=== PATIENT | male | born 1945 | race Caucasian/White ===

== ENCOUNTER → 2018-03-23 | Outpatient (CLI) | payer MEDICARE, BC | END | disposition home or self-care (01) | LOC: RADUSWWP 11:44 | PROVIDERS: ATTEND Family Medicine | DX: R25.2 Cramp and spasm (principal) | CPT/HCPCS: 93922 ==

== ENCOUNTER → 2020-03-29 | Outpatient (CLI) | payer MEDICARE ==
[~2020-03-29] MED LIST: DOBUTamine DRIP for NUC MED 500 MG in DEXTROSE/WATER 1 250ML.BAG IV ONE
--- NOTE | 2020-03-29 13:52 | ECHOS ---
STRESS ECHOCARDIOGRAM LUMASON: N/A Vial INDICATIONS: Chest pain MEDICATIONS: BASELINE HEART RATE: 67 BASELINE BLOOD PRESSURE: 102/64 MAXIMUM HEART RATE: 123 MAXIMUM BLOOD PRESSURE: 139/54 85% MPHR: 123 100% MPHR: 145 METS: N/A MAXIMUM STAGE REACHED: 3 TOTAL EXERCISE TIME: 8:54 CLINICAL INFORMATION: Baseline rhythm is a sinus mechanism, rate of 67, normal axis and intervals, occasional PVCs. Baseline blood pressure 102/64 mmHg. Patient received the infusion of dobutamine per protocol, peak rate 123 beats per minute which is equal to 85% maximum predicted heart rate. Peak blood pressure 139/54 mmHg. Electrocardiograph monitoring revealed occasional single PVCs with rare couplets and triplets during the infusion, PACs were noted as well. There was no evidence of diagnostic ischemic ST deviation. FINDINGS: Baseline echocardiogram revealed normal wall motion. At peak infusion, there was normal wall motion augmentation with no hypokinesis or dyskinesis. CONCLUSION: 1. Normal electrocardiographic response to dobutamine infusion with occasional PVCs and rare couplets and triplets. 2. Normal stress echocardiogram with no evidence of stress-induced ischemia. MMODL / IJN: [id number] /
== END | disposition home or self-care (01) ==
LOC: RADNMMAIN 09:36
PROVIDERS: ATTEND Family Medicine
DX: R07.89 Other chest pain (principal)
CPT/HCPCS: 93351; J1250

== ENCOUNTER → 2022-04-22 | Outpatient (CLI) | payer MEDICARE ==
--- NOTE | 2022-04-22 16:38 | XR ---
EXAMINATION TYPE: XR KUB DATE OF EXAM: 04/22/2022 Comparison: None Clinical History: 77-year-old male N20.1 CALCULUS OF URETER Findings: Mild to moderate stool burden particularly in the right side of the abdomen. Nonobstructive bowel gas pattern. Lung bases are clear. Supine imaging limited for assessment of free air. No definite suspic ious calcification radiographically apparent. Impression: No definite suspicious calcification is radiographically apparent.
== END | disposition home or self-care (01) ==
LOC: RADXRMAIN 14:55
PROVIDERS: ATTEND Urology
DX: N20.1 Calculus of ureter (principal)
CPT/HCPCS: 74018

== ENCOUNTER → 2022-04-25 | Outpatient (CLI) | payer MEDICARE ==
[2022-04-25 11:54] LABS: Appearance,Urine Clear (Clear); Bilirubin,Urine Negative (Negative); Blood,Urine Large (Negative); Color,Urine Light Yellow; Glucose,Urine (UA) 4+ (Negative); Ketones,Urine Negative (Negative); Leukocyte Esterase,Urine Small (Negative); Nitrite,Urine Negative (Negative); Protein,Urine Trace (Negative); RBC,Urine 7 /hpf (0-5); Squamous Epithelial Cell,Urine <1 /hpf (0-4); Urobilinogen,Urine <2.0 mg/dL (<2.0); WBC,Urine 8 /hpf (0-5)
[2022-04-25 15:36] LABS: Basophils # (A) 0.11 X 10*3/uL (0.00-0.10); Basophils % (A) 1.3 %; Eosinophils # (A) 0.51 X 10*3/uL (0.04-0.35); Eosinophils % (A) 5.9 %; HCT 46.2 % (39.6-50.0); HGB 14.9 g/dL (13.0-17.0); Immature Grans, Automated 0.5 %; Lymphocytes # (A) 1.28 X 10*3/uL (0.90-5.00); Lymphocytes % (A) 14.9 %; MCH 30.7 pg (27.0-32.0); MCHC 32.3 g/dL (32.0-37.0); MCV 95.3 fL (80.0-97.0); Mean Platelet Volume 10.7 fL (9.5-12.2); Monocytes # (A) 0.78 X 10*3/uL (0.20-1.00); Monocytes % (A) 9.1 %; NRBC Per 100 WBC 0 /100 WBCS (0.0-0.0); Neutrophils # (A) 5.89 X 10*3/uL (1.80-7.70); Neutrophils % (A) 68.3 %; Platelet Count 222 X 10*3/uL (140-440); RBC 4.85 X 10*6/uL (4.40-5.60); RDW 12.1 % (11.5-14.5); WBC 8.61 X 10*3/uL (4.50-10.00)
[2022-04-25 15:54] LABS: African American GFR (CKD) 38.6 (60.0-200.0); Anion Gap 12.9 mmol/L (10.00-18.00); BUN/Creat Ratio 17.58 Ratio (12.00-20.00); Blood Urea Nitrogen 33.4 mg/dL (9.0-27.0); Calcium 9.1 mg/dL (8.7-10.3); Carbon Dioxide 24.4 mmol/L (20.0-27.5); Non-African American GFR(CKD) 33.3 (60.0-200.0); Potassium 4.4 mmol/L (3.5-5.5)
== END | disposition home or self-care (01) ==
LOC: LABPAT 09:01
PROVIDERS: ATTEND Urology
DX: Z01.812 Encounter for preprocedural laboratory examination (principal); N20.1 Calculus of ureter
CPT/HCPCS: 80048; 81001; 85025

== ENCOUNTER 2022-04-30 14:28 | Day surgery (SDC) | payer MEDICARE ==
[2022-04-25 11:56] VITALS: BMI 34.0
--- NOTE | 2022-04-30 11:34 | P.HPIHPCON ---
History of Present Illness H&P Date: 04/30/22 Chief Complaint: Right ureteral stone This is 77-year-old male with history of a 6 mm right-sided ureteral stone, he is symptomatically from her stone. Stone is radiolucent. Discussed with him the option of ureteroscopy with holmium laser. Risk of Bleeding, infection, inj ury to the ureter were discussed . Risk of anesthesia was also discussed. He understood all the risk and agreed to proceed Consent for Procedure: I have explained the operation/procedure to the patient, including the risks, benefits, side effects, alternative therapies (including not receiving the proposed treatment or service), the likelihood of the patient achieving his/her goals, and potential recuperation problems for the procedure/sedation/analgesia, as well as any blood products, if indicated. I also explained to the patient the risks, benefits and side effects of the alternatives, as well as the risks related to not receiving the proposed procedure, care, treatment, or services. Past Medical History Past Medical History: Diabetes Mellitus, GERD/Reflux, Hypertension Additional Past Medical History / Comment(s): SINUS/ALLERGY History of Any Multi-Drug Resistant Organisms: None Reported Past Surgical History: No Surgical Hx Reported Additional Past Anesthesia/Blood Transfusion Reaction / Comment(s): ANESTH WITH DENTAL WORK, NO ISSUES Past Psychological History: No Psychological Hx Reported Smoking Status: Never smoker Past Alcohol Use History: None Reported Past Drug Use History: None Reported - Past Family History Daughter(s) Additional Family Medical History / Comment(s): dysautonomia Medications and Allergies Home Medications Medication Instructions Recorded Confirmed Type Benzonatate [Tessalon Perles] 200 mg PO DIRECTED 04/25/22 04/25/22 History Cholecalciferol [Vitamin D3 (25 50 mcg PO DAILY 04/25/22 04/25/22 History Mcg = 1000 Iu)] Cinnamon Bark [Cinnamon] 3 tab PO DAILY 04/25/22 04/25/22 History Ciprofloxacin HCl 500 mg PO DAILY 04/25/22 04/25/22 History Dapagliflozin Propanediol [Farxiga] 10 mg PO QAM 04/25/22 04/25/22 History Docusate [Colace] 2 cap PO BID 04/25/22 04/25/22 History Famotidine [Zantac-360 10 mg PO QAM 04/25/22 04/25/22 History (Famotidine)] Losartan/Hydrochlorothiazide 1 tab PO QAM 04/25/22 04/25/22 History [Losartan-Hctz 100-25 mg Tab] Ondansetron Odt [Zofran Odt] 4 mg PO DIRECTED PRN 04/25/22 04/25/22 History Tamsulosin HCl [Flomax] 0.4 mg PO DAILY 04/25/22 04/25/22 History Triprolidine/PE/Dm/Acetamin/GG 1 each PO DAILY 04/25/22 04/25/22 History [Mucinex Sinusmax Day-Nt Caplet] metFORMIN HCL 1,000 mg PO QAM 04/25/22 04/25/22 History sitaGLIPtin [Januvia] 100 mg PO QAM 04/25/22 04/25/22 History Allergies Allergy/AdvReac Type Severity Reaction Status Date / Time No Known Allergies Allergy Unverified 04/25/22 11:43 Surgical - Exam - General no distress, moderate pain - Eyes normal ocular movement, no pale - ENT normal nares, normal mucosa - Respiratory normal expansion, normal respiratory effort - Abdomen Abdomen: soft, non tender Assessment and Plan Assessment: OR for right-sided ureteroscopy, holmium laser lithotripsy, stone basketing and stent insertion
[~2022-04-30 14:28] MED LIST changes: -DOBUTamine DRIP for NUC MED 500 MG in DEXTROSE/WATER 1 250ML.BAG IV ONE; +LACTATED RINGERS 1,000 ML IV SCH; +LIDOCAINE 1% (10MG/ML) FOR IV START INTRADERMA PRN; +ONDANSETRON 4 MG/2 ML VIAL IVP ONE; +fentaNYL (PF) 50 MCG/ML 2 ML AMP IV PRN
--- NOTE | 2022-04-30 14:55 | XR ---
EXAMINATION TYPE: XR KUB DATE OF EXAM: 04/30/2022 COMPARISON: 04/22/2022 INDICATION: Prelithotripsy TECHNIQUE: Single view abdomen frontal projection FINDINGS: Nonspecific bowel gas is present. Psoas margins are normal. No organomegaly is present. Degenerative disc changes present L5-S1. No suspicious calcifications identified. A punctate calcific ation may overlie the right kidney. IMPRESSION: 1. Punctate right renal calcification
[2022-04-30 15:06] LABS: Glucose,Whole Blood 140 mg/dL (70-110)
[2022-04-30] MEDS ORDERED: fentaNYL (PF) 50 MCG/ML 2 ML AMP ONE (16:08)
[2022-04-30] MEDS ORDERED: MIDAZOLAM 2 MG/2 ML VIAL ONE (16:08)
[2022-04-30] MEDS ORDERED: SUCCINYLCHOLINE CHLORIDE 200 MG/10 ML VIAL IV ONE (16:08)
[2022-04-30] MEDS ORDERED: CALCIUM GLUCONATE IN NACL 2 GM/100 ML IVPB ONE (16:08)
[2022-04-30] MEDS ORDERED: PROPOFOL 10 MG/ML 20 ML VIAL IV ONE (16:08)
--- NOTE | 2022-04-30 17:00 | P.OP ---
Date of Procedure: 04/30/22 Preoperative Diagnosis: Right ureteral stone Postoperative Diagnosis: Same Procedure(s) Performed: Cystoscopy, right ureteroscopy Implants: None Anesthesia: ROCIO Surgeon: Jim Lee Estimated Blood Loss (ml): 5 Pathology: none sent Condition: stable Disposition: PACU Indications for Procedure: This is 77-year-old male with history of a 6 mm right-sided ureteral stone, he is symptomatically from her stone. Stone is radiolucent. Discussed with him the option of ureteroscopy with holmium laser. Risk of Bleeding, infection, injury to the ureter were discussed . Risk of anesthesia was also discussed. He understood all the risk and agreed to proceed Operative Findings: No stone visualized in the ureter or the kidney Description of Procedure: Patient brought to the operating room, general anesthesia was induced. He was prepped and draped in sterile fashion and placed in dorsal lithotomy position. Cystoscopy was performed which showed no abnormality within the bladder. Of note patient had trilobar hyperplasia with enlarged medial lobe of with intravesical extension. Attention was then carried to the right ureteral orifice which was intubated wire. Next a semirigid ureteroscope was advanced up the urethra up the right ureteral orifice, the scope was advanced all the way up to the UPJ which showed no evidence of stone along the course of the ureter. Pullback ureteroscopy was performed showed no injury to the ureter or any evidence of ureteral stones. Of note the ureter was dilated consistent with a recently passed stone. At this time an 1113 Russian access sheath was passed over the wire and into the proximal ureter without any difficulties under fluoroscopy. Next a flexible ureteroscope was inserted through the access sheath, complete renoscopy was performed which showed no evidence of stone within the kidney. Pullback ureteroscopy was performed which showed no abnormality within the ureter or any ureteral stones or injury to ureter. The bladder was emptied at the end of the case, there was no ureteral edema thus stent was not placed. Patient tolerated procedure well was taken to recovery in stable condition
[2022-04-30 17:03] VITALS: RESP 16; TEMP 96.8
[2022-04-30] MEDS ORDERED: hydrALAZINE HCL 20 MG/ML 1 ML VIAL ONE (17:54)
[2022-04-30] MEDS ORDERED: hydrALAZINE HCL 20 MG/ML 1 ML VIAL IVP ONE (17:57)
[2022-04-30 18:11] VITALS: BP 195/103; PULSE 62
--- NOTE | 2022-04-30 21:30 | FL ---
EXAMINATION TYPE: FL guidance operating room DATE OF EXAM: 04/30/2022 FLUOROSCOPY Fluoroscopy time of 2 seconds was used during urologic intervention with cystoscopy and intervention for right ureteral stone. 1 image/s document/s the procedure.
== END 2022-04-30 18:31 | disposition home or self-care (01) ==
LOC: OR 14:28
PROVIDERS: ATTEND Urology
DX: N20.1 Calculus of ureter (principal); E11.9 Type 2 diabetes mellitus without complications; I10 Essential (primary) hypertension; K21.9 Gastro-esophageal reflux disease without esophagitis; Z87.442 Personal history of urinary calculi
CPT/HCPCS: 74018; 52351; C1769; J2250; J0330; J0360; J0690; J2405; J3010; J2704; J0610

== ENCOUNTER → 2022-10-10 | Outpatient (CLI) | payer MEDICARE ==
[~2022-10-10] MED LIST changes: +DOBUTamine DRIP for NUC MED 500 MG in DEXTROSE/WATER 1 250ML.BAG IV PRN; -LACTATED RINGERS 1,000 ML IV SCH; -LIDOCAINE 1% (10MG/ML) FOR IV START INTRADERMA PRN; -ONDANSETRON 4 MG/2 ML VIAL IVP ONE; -fentaNYL (PF) 50 MCG/ML 2 ML AMP IV PRN
--- NOTE | 2022-10-10 11:20 | CA ---
Dobutamine Stress Echocardiogram Report Mark Stacy Age: 77 Gender: M : 1945 Exam Date: 10/10/2022 09:58 Exam Location: [place] [facility] Ordering Physician: Ramon Law MD Referring Physician: Ramon Law MD Internal Sales Engineer: Bhavana Vazquez RDCS Technologist: Ht (in): 69 Wt (lb): 230 Procedure CPT: Indication: R07.9 ICD-9 Codes: Rhythm: Patient History: CHEST PAIN, HTN, DIABETES, ELEVATED CHOLESTEROL LEVELS, FAMILY HX OF HEART DISEASE, PRIOR SMOKER Cardiac Medications: Medications in past 24 hours: Contrast: Lumason Total Dose (mL): Stress Results Protocol: Peak Dose (???g/kg/min): 40 Duration (min:sec): Atropine:(mg) Target HR: 122 Double Product: 17889 Resting HR: 62 Resting BP: 149 / 90 Peak HR: 126 Peak BP: 196 / 51 Max Predicted HR: 143 88 % Max Predicted HR Stress Summary: The patient's target heart rate was achieved. BP Response: Normal Reason for Termination: INFUSION COMPLETE/TARGET HR Cardiac Symptoms: ECG Analysis Resting EKG: Normal sinus rhythm, first-degree AV block with nonspecific ST changes Stress EKG: Episodes of wide complex at peak exercise consistent with rate related left bundle branch block Arrhythmia: Occasional PVCs Echo Analysis Base Echo Analysis: Normal resting echocardiogram. Low Echo Anaylsis: Normal wall thickening Peak Echo Analysis: Normal wall thickening and motion with no segmental wall motion Recovery Echo: Normal systolic function with normal function MEASUREMENTS (Male/Female) Normal Values CONCLUSIONS 1. Rate related left bundle branch block with nondiagnostic electrocardiographic response to dobutamine infusion 2. Normal stress echocardiogram with no evidence of stress- induced ischemia 3. Occasional PVCs Dr. Rajinder Camp MD (Electronically Signed) Final Date: 10 October 2022 11:19
== END | disposition home or self-care (01) ==
LOC: RADNMMAIN 09:31
PROVIDERS: ATTEND Family Medicine
DX: I44.7 Left bundle-branch block, unspecified (principal); R07.9 Chest pain, unspecified
CPT/HCPCS: 93351; Q9950

== ENCOUNTER → 2022-10-27 | Outpatient (CLI) | payer MEDICARE ==
--- NOTE | 2022-10-27 08:25 | US ---
EXAMINATION TYPE: US kidneys/renal and bladder DATE OF EXAM: 10/27/2022 COMPARISON: NONE CLINICAL INDICATION: Male, 77 years old with history of N28.1 CYST OF KIDNEY, ACQUIRED; Hx, stones, r t cyst EXAM MEASUREMENTS: Right Kidney: 10.2x5.6x4.8 cm Left Kidney: 11.3x5.5x4.9 cm Right Kidney: large anechoic area: 4.7x4.1x5.2cm compatible with a cyst Left Kidney: small anechoic area: 0.8x0.7x0.8cm upper pole small cortical renal cyst Bladder: wnl Bilateral Jets seen: Yes IMPRESSION: 1. Bilateral renal cysts
== END | disposition home or self-care (01) ==
LOC: RADUSWWP 06:37
PROVIDERS: ATTEND Urology
DX: N28.1 Cyst of kidney, acquired (principal)
CPT/HCPCS: 76770

== ENCOUNTER → 2023-03-06 | Outpatient (CLI) | payer MEDICARE ==
--- NOTE | 2023-03-06 09:09 | CT ---
EXAMINATION TYPE: CT chest wo con DATE OF EXAM: 03/06/2023 COMPARISON: None HISTORY: 77-year-old male Z77.090, exposure to asbestos TECHNIQUE: Contiguous axial scanning of the chest without contrast. Coronal/sagittal reconstructions performed. CT DLP: 563.60mGycm. Automatic exposure control utilized for a dose reduction. FINDINGS: Incidental asymmetric atrophy of the left pectoralis major muscle. Heart normal size with trace anterior basilar pericardial fluid. LAD and RCA coronary calcifications are present. Aneurysmal aortic root at 4.2 cm. Aneurysmal ascending aorta 4.2 cm. Mild atherosclerotic arch calcifications within the joint vessel branching anatomy. Aneurysmal upper descending thoracic aorta at 4.1 cm. Mildly aneurysmal mid descending thoracic aorta at 3.4 cm. No thoracic lymphadenopathy by CT size criteria. No consolidation or pleural effusion. Minimal strandy atelectasis and reticular change at the posterior lung bases. No calcified pleural pl aques are seen. * Approximate 3 small calcified granulomas at the left base, largest measuring 4 mm. * 3 mm calcified granuloma lateral left upper lobe. * 3 mm calcified granuloma posterior right lower lobe. No consolidation or pleural effusion. Visualized upper abdomen shows a few scattered hepatic cysts measuring up to 1.9 cm. Some punctate ca lcifications may reflect prior granulomatous disease. Mild diverticular change scattered throughout t he visualized colon. Bones: Anterior endplate spondylosis mid to lower thoracic spine. Moderate degenerative disc disease T10-T11 and L2-L3. IMPRESSION: 1. No specific CT findings of asbestos-related pleural disease. There is minimal subpleural reticular change at the posterior lung bases that could represent some dependent atelectasis or minimal inters titial fibrosis. 2. Small calcified granulomas compatible with prior granulomatous disease. 3. Aneurysmal thoracic aorta ascending measuring 4.2 cm and upper descending measuring up to 4.1 cm. Mid descending measuring up to 3.4 cm.
== END | disposition home or self-care (01) ==
LOC: RADCTMAIN 07:18
PROVIDERS: ATTEND Family Medicine
DX: Z77.090 Contact with and (suspected) exposure to asbestos (principal); I71.21 Aneurysm of the ascending aorta, without rupture; J84.10 Pulmonary fibrosis, unspecified
CPT/HCPCS: 71250

== ENCOUNTER → 2024-05-27 | Outpatient (CLI) | payer MEDICARE ==
--- NOTE | 2024-05-27 10:17 | US ---
EXAMINATION TYPE: US carotid duplex BILAT DATE OF EXAM: 05/27/2024 COMPARISON: 05/23/2013 CLINICAL INDICATION: Male, 79 years old with history of Z91.89 RISK FACTORS; screening, HTN high chol esterol Additional History: .... TECHNIQUE: Grayscale, color Doppler and spectral Doppler evaluation of the bilateral carotid systems and vertebral arteries. Indirect Doppler criteria was utilized. FINDINGS: EXAM MEASUREMENTS: RIGHT: Peak Systolic Velocity (PSV) cm/sec ----- Right CCA: 67.7 ----- Right ICA: 65.9 ----- Right ECA: 54.6 ICA/CCA ratio: 1.0 RIGHT: End Diastole cm/sec ----- Right CCA: 24.1 ----- Right ICA: 21.1 ----- Right ECA: 0.0 LEFT: Peak Systolic Velocity (PSV) cm/sec ----- Left CCA: 77.3 ----- Left ICA: 68.6 ----- Left ECA: 38.9 ICA/CCA ratio: 0.9 LEFT: End Diastole cm/sec ----- Left CCA: 17.1 ----- Left ICA: 27.6 ----- Left ECA: 0.0 VERTEBRALS (direction of flow): Right Vertebral: Antegrade Left Vertebral: Antegrade Rhythm: Arrhythmia SPEECH AND HEARING DIRECTOR NOTES: arrhythmia noted. No stenosis, elevated velocities, or significant plaque IMPRESSION: 1. The enterprise manager indicates an aberrant cardiac rhythm during the scan. Clinically correlate. 2. No hemodynamically significant internal carotid artery stenosis on either side. Criteria for Assigning % of Stenosis / Diameter reduction (Estimation based on the indirect measurements of the internal carotid artery velocities (ICA PSV). 1. Normal (no stenosis)=ICA PSV < 125 cm/s: ratio < 2.0: ICA EDV<40 cm/s. 2. Less than 50% stenosis=ICA PSV < 125 cm/s: ratio < 2.0: ICA EDV<40 cm/s. 3. 50 to 69% stenosis=ICA PSV of 125 to 230 cm/s: ration 2.0 ? 4.0: ICA EDV 40-100 cm/s. 4. Greater than 70% stenosis to near occlusion= ICA PSV > 230 cm/s: ratio > 4.0: ICA EDV > 100 cm/s. 5. Near occlusion= ICA PSV velocities may be low or undetectable: variable ratio and ICA EDV. 6. Total occlusion=unable to detect flow. [facility], , 05/27/2024 10:15 AM
== END | disposition home or self-care (01) ==
LOC: RADUSWWP 09:33
PROVIDERS: ATTEND Family Medicine
DX: I49.9 Cardiac arrhythmia, unspecified (principal); I10 Essential (primary) hypertension; E78.00 Pure hypercholesterolemia, unspecified; Q27.8 Other specified congenital malformations of peripheral vascular system; Z91.89 Other specified personal risk factors, not elsewhere classified
CPT/HCPCS: 93880